=== PATIENT | female | born 1935 | race Caucasian/White ===

== ENCOUNTER 2017-04-21 17:09 | Inpatient (IN) | payer OTHER, SELFPAY ==
--- NOTE | ~2017-04-21 | HP ---
History And Physical [facility] [address] [place]. [address] NAME: JOSE CANDELARIO : 37 STATUS : ADM IN [facility]#: [id number] AGE: 81 ADM/REG DATE : 04/21/17 MR#: [id number] REPORT SERV DATE: 04/22/17 DICTATED BY: JULES CASTELLANOS DATE: 04/21/17 REPORT STATUS : Draft TRANSCRIBED BY: MODL DATE: 04/21/17 DATE OF ADMISSION: 04/21/2017 CHIEF COMPLAINT: Altered mental status and weakness. HISTORY OF PRESENT ILLNESS: This is an 81-year-old female who has a history of chronic systolic heart failure, acute on chronic kidney disease, and Parkinson disease who presents to the emergency room at [facility] with the above-mentioned complaint. History is obtained from the patient, speaking with the ER physician, reviewing data available on the [employer] [facility]. Unfortunately, the daughter who was with her had gone home before I could see them. According to available data, Mrs. Candelario who was recently discharged from [facility] on 04/06/2017 after she was admitted and treated as an inpatient for pretty much the same symptoms, went home and continued to do poorly. She started gaining weight. Her abdomen got distended. She became more increasingly short of breath, and the family has reported that she became quite confused today. She says she wanted to go shopping today and could not even get out of her room. The patient was brought to the emergency room here to be evaluated. In the emergency room here, she presented with significant hyperkalemia, was treated with insulin and dextrose, calcium gluconate, and bicarb, she had a new right lower lobe infiltrate as well. She also had ascites in CT of the abdomen and pelvis as well, and Hospitalist Service was asked to admit her for further evaluation and treatment. At the time of my evaluation, she denied any chest pain or palpitations. She did have some mild orthopnea, maybe 1 to 2 pillows. She denied any cough, hemoptysis, night sweats, or weight loss. She denied any recent falls or loss of consciousness. She did not have any fevers or chills at home. Denied any nausea, vomiting, or diarrhea. No recent history of hematemesis, hematochezia, or hematuria. No other history of recent travel or exposures other than those mentioned above. PAST MEDICAL HISTORY: Significant for history of chronic systolic congestive heart failure, chronic anemia, chronic kidney disease, Parkinson disease, atrial fibrillation, and a pacemaker placed. SOCIAL HISTORY: She does not smoke, drink, or use recreational drugs. FAMILY HISTORY: Noncontributory. MEDICATIONS: At home were reviewed by me in the chart today and reordered by me. REVIEW OF SYSTEMS: As in history of present illness. All other systems were reviewed in detail and quite unremarkable. History And Physical [address] [place]. [address] NAME: JOSE CANDELARIO : 37 STATUS : ADM IN PAT#: [id number] AGE: 81 ADM/REG DATE : 04/21/17 MR#: [id number] REPORT SERV DATE: 04/22/17 DICTATED BY: JULES CASTELLANOS DATE: 04/21/17 REPORT STATUS : Draft TRANSCRIBED BY: RAYMOND DATE: 04/21/17 PHYSICAL EXAMINATION: GENERAL: This is a pleasant, 81-year-old female, not in any acute distress. HEENT: Her head was atraumatic, normocephalic. She is alert, awake, not oriented to time, place, or person. Her pupils are equal, reacting to light and accommodating. External ocular muscles are intact. Membranes are moist and pink. Sclerae are nonicteric. NECK: Supple with no jugular venous distention, lymphadenopathy, or thyromegaly. LUNGS: Auscultation of her lungs revealed crackles in the right base. Otherwise without any expiratory wheezes. Trachea appeared to be in midline. HEART: Heart sounds were regular with no murmurs, rubs, or gallops appreciated. ABDOMEN: Soft, distended. No tenderness to palpation. Bowel sounds are present. EXTREMITIES: Showed bilateral pitting lower extremity edema with no cyanosis or clubbing. NEUROLOGIC: Grossly intact. No focal sensory or motor deficits. She was able to move all four extremities. VITAL SIGNS: Her temperature today was 97.5, pulse 78, respirations 16 a minute, blood pressure was 115/57, and oxygen saturations were 90% on 2 L of oxygen via nasal cannula. LABORATORY DATA: Reviewed on the [employer] system showed sodium of 134, potassium was 7.6, CO2 of 21, and BUN was 79. Creatinine was 3.25 today, it is up from 1.74 on 04/05/2017. Her blood glucose today was 166. Total protein was 6.7, albumin 3.1, alkaline phosphatase was 127, ALT 16, and AST 79. Lipase was 122. CBC showed a white blood cell count of 11,900, hemoglobin was 8.9, and hematocrit 28.5, which is about her baseline. Her platelet count was 178,000. Urinalysis was grossly unremarkable. Films of the chest x-ray and CT of the abdomen and pelvis were reviewed by me on the PACS today. Per my interpretation, the chest x-ray showed new right lower lobe infiltrate. Films of the CT of the abdomen and pelvis were also reviewed. Official Radiology comments were also reviewed. There is mild to moderate ascites which is new and small bilateral pleural effusions. The 12-lead EKG done in the emergency room was reviewed and interpreted by me. There is paced rhythm at a rate of 72 per minute. IMPRESSION: 1. Altered mental status. 2. Hyperkalemia. 3. Chronic anemia, stable. 4. Pneumonia, healthcare associated. 5. Acute on chronic systolic congestive heart failure. 6. Ascites. 7. Acute on chronic kidney disease. 8. History of atrial fibrillation. 9. Parkinson disease. 10.Pacemaker placement. PLAN: We will admit Ms. Candelario to the Hospitalist Service with cardiac telemetry. The patient was given insulin, dextrose, calcium gluconate, and sodium bicarbonate in the ER for her hyperkalemia. We will repeat a potassium level in a couple of hours and proceed accordingly. We will give her Kayexalate p.o. as well. We will go ahead and consult Nephrology Service to see her in the morning. She was also hypotensive with a systolic of 80 at the time of my examination. We will give her albumin infusion at this time History And Physical [address] [address] NAME: JOSE CANDELARIO : 37 STATUS : ADM IN [facility]#: [id number] AGE: 81 ADM/REG DATE : 04/21/17 MR#: [id number] REPORT SERV DATE: 04/22/17 DICTATED BY: JULES CASTELLANOS DATE: 04/21/17 REPORT STATUS : Draft TRANSCRIBED BY: MODL DATE: 05/22/17 considering her volume overload and acute on chronic heart failure. We will also check her BNP today. After cultures are drawn, we will start her on empiric IV antibiotics for healthcare- associated pneumonia given her recent inpatient treatment at [facility]. We will also get an echocardiogram to evaluate her heart failure. Her altered mental status is multifactorial. We will watch her closely. We will continue all other home medications and treatments at this time. She is on chronic anticoagulation, which we will be continuing. Please see today's orders for all the details. I have discussed the above plans with the patient. Her questions were answered. She is agreeable to the above recommendations. Hospitalist Service will be following her during her stay. /RAYMOND Jules Castellanos M.D. / [id number] CC: Maria Ines Bhandari M.D.
--- NOTE | ~2017-04-21 | CN ---
Consultation Report [facility] [address] [place]. [address] NAME: JOSE HOLT : 37 STATUS : ADM IN PAT#: [id number] AGE: 81 ADM/REG DATE : 04/21/17 MR#: [id number] REPORT SERV DATE: 04/22/17 DICTATED BY: AMALIA NIX DATE: 04/22/17 REPORT STATUS : Draft TRANSCRIBED BY: MODL DATE: 04/22/17 DATE OF CONSULTATION: REASON FOR CONSULTATION: Acute kidney injury on chronic kidney disease with hyperkalemia with admission for altered mentation and pneumonia. HISTORY OF PRESENT ILLNESS: This is a fairly pleasant 81-year-old female patient, followed in our office by Dr. Jagdish Boswell. Baseline appears to be approximately 1.7 to 1.9. Current records from most recent office visit are unavailable to me at the point of dictation. The patient's daughter rather is at bedside this morning, provides much of the medical history on her mother who has had a recent inpatient stay at [facility] for altered mentation and some sort of acute infection. The patient's daughter is unclear particularly if this were pneumonia or urinary tract infection or combination thereof. She reports to [facility] with worsening mentation overnight and was diagnosed with pneumonia and was placed inpatient for antibiotics and supportive care with noted acute kidney injury and hyperkalemia. She has been given Kayexalate most recently this morning at around 0715 hours with last resultant potassium at 5.9, on early a.m. labs without current recheck. She has also exhibited some hypoglycemia and has exhibited as well an elevated procalcitonin at 1.07, but a lactate at 0.60. The patient is awake and alert this afternoon, while evaluation is taking place. She does answer questions appropriately, but has some level of difficulty with all of her past medical history and details of her current living situation. According to the daughter who is here from [place], the patient lives independently at home and provides most of her care independently. PAST MEDICAL HISTORY: Positive for chronic kidney disease stage 3, baseline creatinine appears to be 1.7 to 1.[address] Jagdish Boswell. History is also significant for congestive heart failure with unknown ejection fraction. Last echo in 2010 at [facility] appears by her previous data, but is unavailable for review, chronic anemia, chronic kidney disease, Parkinson disease, atrial fibrillation, and previous pacemaker. SOCIAL HISTORY: She lives here locally. Apparently lives independently with some level of interaction from her family and remote history of tobacco abuse, none currently. No EtOH. No illicit drugs or . ALLERGIES: ON ENTRY ARE FOLLOWS; SHE LISTS ALLERGIES TO SULFA ANTIBIOTICS. ACTIVE MEDICATIONS: ProAir HFA two puffs inhaled q.6 h. p.r.n., Zyloprim 300 mg p.o. daily, Tessalon Perles 100 mg p.o. t.i.d., Sinemet 10/100 one tablet p.o. t.i.d., Coreg 25 mg p.o. b.i.d., vitamin D 1000 units p.o. daily, Flexeril 10 mg p.o. t.i.d., Lanoxin 1.25 mcg p.o. q.48 h., Breo Ellipta 1 puff inhaled daily, Lasix 40 mg daily, Glucotrol 10 mg p.o. daily, [place] 5/325 one tablet p.o. q.6 h. p.r.n., Levemir 48 units subcu at bedtime, levothyroxine 75 mcg p.o. daily, Claritin 10 mg p.o. daily, Ativan 0.5 mg daily p.r.n., Cozaar 50 mg p.o. daily, Singulair 10 mg p.o. daily, Zofran 4 mg p.o. q.6 h. p.r.n., Protonix 20 mg daily, Klor-Con 20 mEq p.o. daily, Mirapex 0.25 mg p.o. at bedtime, Pravachol 40 mg p.o. daily, Consultation Report [address] [place]. [address] NAME: JOSE HOLT : 37 STATUS : ADM IN [facility]#: [id number] AGE: 81 ADM/REG DATE : 04/21/17 MR#: [id number] REPORT SERV DATE: 04/22/17 DICTATED BY: AMALIA NIX DATE: 04/22/17 REPORT STATUS : Draft TRANSCRIBED BY: RAYMOND DATE: 04/22/17 Lyrica 50 mg p.o. at bedtime, Xarelto 15 mg p.o. daily, Daliresp 500 mcg p.o. daily, Januvia 25 mg p.o. at bedtime, Spiriva one capsule inhaled daily, and Mucinex D 1 tablet daily. REVIEW OF SYSTEMS: Completed with the assistance of family who was at bedside. The patient appears to be awake and alert, but is sparse on details of her medical history. PHYSICAL EXAMINATION: VITAL SIGNS: Blood pressure 118/57, temperature at 97.6, she is 94% on room, respiratory rate 18. GENERAL: She is a chronically ill-appearing, female patient, in no acute distress during evaluation. HEENT: Normocephalic and atraumatic. Normal ocular movements. No scleral icterus. No conjunctival pallor is appreciated. NECK: Supple. No thyromegaly. No JVD or mass. CHEST: Shows positive S1 and S2 with a paced rhythm. No rubs. No gallops. LUNGS: Diminished with scattered rhonchi and wheezes. GI: Shows a rounded abdomen with [id number] ascites noted without overt distention. : Deferred. EXTREMITIES: Show positive pulses. No clubbing, cyanosis, or edema. NEUROLOGIC: She appears to be grossly intact, nonfocal. She is able to answer questions appropriately; however, has some level of difficulty with exact details of her medical history and has a diagnoses of Parkinson's. SKIN: Warm, dry, and intact to visualized surfaces. No rash, lesions, or ecchymosis. EXTREMITIES: Show positive pulses. No clubbing, cyanosis, or edema. PSYCH: She is of appropriate mood and affect. LABORATORY DATA: Pertinent laboratories and imaging to this evaluation are as follows. Portable chest x-ray identifies an infiltrate developing in the right lower lobe. She did have some hypoglycemic episodes this morning. Procalcitonin at 1.15, sodium 139, potassium 5.9, chloride 109, CO2 of 22, BUN 79, creatinine 2.94, reflected GFR 14 mL/minute, calcium 8.3, magnesium 1.8, phosphorus 6.2, ALT is 16, AST 46, TSH [QAMARKER], lactate 0.6. CBC: White blood cell count 9.8, RBC 2.97, hemoglobin 8.2, hematocrit 25.8, platelets at 137. Strep pneumo and Legionella are negative. Urinalysis identifies cloudy in appearance, no protein minimal white blood cells or red blood cells with 18 casts per low power field and rare mucus. B-natriuretic peptide 366.6. CT of the abdomen and pelvis identifies ascites as noted on physical exam. There is also noted a small right pleural effusion, left trace pleural effusion and she is status post colectomy with suspected ileal colonic anastomosis involving the rectum with no GI obstruction and cardiomegaly is also noted. IMPRESSION AND PLAN: This is an 81-year-old female patient with acute kidney injury on chronic kidney disease with an elevated creatinine, hyperkalemia, possible pneumonia, and elevated procalcitonin. Creatinine on entry at 2.94, baseline creatinine appears to be 1.7 and [address] Jagdish Boswell. She is also presenting with some level of difficulty with hypoglycemia. She has been initiated on antibiotics by the Consultation [address] [address] NAME: JOSE HOLT : 37 STATUS : ADM IN [facility]#: [id number] AGE: 81 ADM/REG DATE : 04/21/17 MR#: [id number] REPORT SERV DATE: 04/22/17 DICTATED BY: AMALIA NIX DATE: 04/22/17 REPORT STATUS : Draft TRANSCRIBED BY: RAYMOND DATE: 04/22/17 hospitalist Service. At this point, we will stop her losartan, stop her Januvia and with the acute kidney injury, we will also stop her Zyloprim and her Lasix and her Glucotrol. She is also noted to be on a large dose of long-acting insulin. We will defer to the Hospitalist Service, which may need to be modified with noted hypoglycemia. Check urine sodium, check urine creatinine, urine urea, check renal ultrasound, check postvoid residual DuoNebs q.6 h. and p.r.n., which appeared to already be in place and titrate oxygen to maintain a sat of 92% rather or better. The patient also complains of some level of neck pain, although there is no noted fernanda trauma to her cervical area. At the request of the family member who is at bedside, we will provide x-ray evaluation of her neck. The patient will benefit from physical therapy, occupational therapy evaluation and likely will need placement of some level at this point for either acute rehabilitation or long-term care dependent on her home living status at the point of discharge. Further modification of treatment plan may be made based on clinical presentation of the patient, laboratory results, and further consultation with Renal attending. We appreciate the consultation, and we are glad to follow with you. DICTATED BY: Leonel Miller NP JR/RAYMOND alia Nix M.D. / [id number] CC: Ean Tejada M.D.
--- NOTE | ~2017-04-21 | DS ---
Discharge Summary [facility] [address] [place]. [address] NAME: JOSE HOLT : 37 STATUS : DIS IN PAT#: [id number] AGE: 81 ADM/REG DATE : 04/21/17 MR#: [id number] REPORT SERV DATE: 05/11/17 DICTATED BY: YAYO BENTLEY DATE: 05/10/17 REPORT STATUS : Draft TRANSCRIBED BY: RAYMOND DATE: 05/10/17 ADMISSION DATE: 04/21/2017 DISCHARGE DATE: 05/10/2017 CONSULTATION: 1. Nephrology, Dr. Ruddy Nix. 2. Cardiology, Gregor Fischer MD. 3. Vascular Surgery, Jeremy Shipman M.D. INVASIVE PROCEDURES: 1. Ultrasound-guided percutaneous access left internal jugular vein. 2. Placement of left internal jugular vein, PermCath with fluoroscopy guidance. 3. Right upper extremity brachiocephalic arteriovenous fistula creation; all performed by Dr. Shipman. DISCHARGE DIAGNOSES: 1. Progression of chronic kidney disease stage 4 to end-stage renal disease, now on intermittent HD. 2. Hyperkalemia, resolved. 3. Normocytic anemia secondary to chronic kidney disease. 4. Healthcare-associated pneumonia, resolved. 5. Chronic obstructive pulmonary disease exacerbation. 6. Acute decompensated heart failure with preserved EF of 50%. 7. Fluid overload. 8. Paroxysmal atrial fibrillation. 9. Parkinson disease. 10.Acute on chronic respiratory failure. 11.Acute kidney injury on chronic kidney disease stage IV. DISCHARGE CONDITION: Stable. HISTORY OF PRESENT ILLNESS: For detailed HPI, please make reference to Dr. Jules Gill's dictation on 04/21/2017. In brief, this is an 81-year-old, female with medical history of chronic heart failure, chronic kidney disease stage 4, Parkinson disease who presented to the emergency room of [facility] here in [place] with complaints of confusion and generalized weakness. In the ER, she was found to have blood pressure 115/57, saturating 90% on 2 L of oxygen, pulse 77, temperature 97.5. Physical exam was positive for diffuse crackles on the right lower lung base without any expiratory wheezes. Also noted to have bilateral pitting lower extremity edema. LABORATORY DATA: White blood cell 11,900, hemoglobin 8.9, hematocrit 28.5, creatinine 3.25. BUN 79, bicarb 21. Chest x-ray showed new right lower lobe infiltrate. CT of the abdomen and pelvis noted for small bilateral pleural effusion. No acute intraabdominal pathology reported. An assessment of acute kidney injury on chronic kidney disease with healthcare-associated Discharge Summary [facility] [id number] [place]. [address] NAME: JOSE HOLT : 37 STATUS : DIS IN PAT#: [id number] AGE: 81 ADM/REG DATE : 04/21/17 MR#: [id number] REPORT SERV DATE: 05/11/17 DICTATED BY: YAYO BENTLEY DATE: 05/10/17 REPORT STATUS : Draft TRANSCRIBED BY: RAYMOND DATE: 05/10/17 pneumonia was made in the ER. The patient was admitted to the Hospitalist Service. HOSPITAL COURSE: 1. Acute kidney injury on chronic kidney disease IV. 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 The patient's creatinine continued to get worse during the course of this admission. It continued to trend up and peaked at 5.0, Nephrology recommended initiation of hemodialysis during this admission. Vascular surgeon was consulted who performed a PermCath placement and brachiocephalic vein fistula placement. The patient had both procedures without any significant complication. Hemodialysis was initiated during this admission. The patient tolerated hemodialysis without any complication. At the time of discharge, the patient was advised to continue HD as an outpatient. HD Center has been provided to this patient, and the patient's next dialysis schedule will be 05/12/2017. 2. Acute on chronic hypoxic respiratory failure. The patient was started on broad- spectrum antibiotics during the course of this admission for health-care associated pneumonia. The patient respiratory status continued to decline. There was increase, during the course of this admission, oxygen requirement was increased from 2 L at presentation to 4 L to 5 L. The patient was noted to have diffuse expiratory wheezes which was consistent with COPD exacerbation. In addition to broad-spectrum antibiotics, steroids were added. The patient's respiratory status continued to improve. The patient's white blood cell trended back to within normal range. At the time of discharge, the patient was back to 2 L of oxygen which is a known baseline. WBC count within normal range. Cough and shortness of breath significantly improved. The patient was advised to continue albuterol nebulization at home as needed. 3. Acute decompensated heart failure with preserved EF of 50%. The patient had a trial of IV diuretics during this admission without any significant improvement. An echocardiogram was obtained that showed left ventricular systolic function borderline at 50% which was unchanged from 11/14/2016. Also noted was dilated right ventricular chamber with mildly impaired contractility which remains unchanged. The patient subsequently underwent hemodialysis with significant improvement in overall volume status. The patient was advised to continue diuretics at home and follow up with primary captain airline pilot as an outpatient. DISCHARGE DISPOSITION: Home with family. DISCHARGE MEDICATIONS: 1. Aspirin 81 mg p.o. daily. 2. Sinemet 10/100 mg one tab p.o. t.i.d. 3. Coreg 25 mg p.o. b.i.d. 4. Tessalon Perles 100 mg p.o. t.i.d. 5. Guaifenesin 600 mg p.o. b.i.d. 6. Levemir 48 units subcu. 7. Levothyroxine 75 mcg p.o. daily. 8. Loratadine 10 mg p.o. daily. 9. Singulair 10 mg p.o. daily. Discharge Summary [address] [address] NAME: JOSE HOLT : 37 STATUS : DIS IN PAT#: [id number] AGE: 81 ADM/REG DATE : 04/21/17 MR#: [id number] REPORT SERV DATE: 05/11/17 DICTATED BY: YAYO BENTLEY DATE: 05/10/17 REPORT STATUS : Draft TRANSCRIBED BY: RAYMOND DATE: 05/10/17 10.Prednisone 40 mg p.o. daily x3 days. 11.Romilast. 12.Spiriva. 13.Albuterol inhaler. 14.Lasix 40 mg p.o. daily. 15.[place] 5/325 mg p.o. b.i.d. 16.Xarelto 15 mg p.o. daily. 17.Losartan 50 mg p.o. daily. 18.Digoxin 125 mcg p.o. q.48 hours. 19.Januvia 25 mg p.o. at bedtime. 20.Zofran 4 mg p.o. p.r.n.. 21.Zyloprim 300 mg p.o. daily. DISCHARGE ACTIVITIES: As tolerated. DISCHARGE FOLLOWUP: 1. Follow up at the hemodialysis center on 05/12/2017. 2. Follow up with Nephrology within one to two weeks of discharge. 3. Followup with Cardiology within two to three weeks of discharge. 4. Follow up with primary care physician within one week of discharge. Greater than 40 minutes was used to prepare this patient's discharge, reconcile medication, and advised the patient on discharge plans and followup. DICTATED BY: MD CHARLY EscobarO/RAYMOND Yayo Bentley MD / [id number] CC: MD Edwin Escobar M.D. Mark W Fugate, M.D. Mani Ravee, M.D. Vinay Deep Madan, MD Mandeep Grewal, M.D.
--- NOTE | ~2017-04-21 | CN ---
Consultation Report [facility] [address] [place]. [address] NAME: JOSE CANDELARIO : 37 STATUS : ADM IN PAT#: [id number] AGE: 81 ADM/REG DATE : 04/21/17 MR#: [id number] REPORT SERV DATE: 04/23/17 DICTATED BY: GREGOR FISCHER DATE: 04/23/17 REPORT STATUS : Draft TRANSCRIBED BY: MODL DATE: 04/23/17 CARDIOLOGY CONSULTATION DATE OF CONSULTATION: 04/23/2017 REASON FOR CONSULTATION: Heart failure. PRIMARY EMPLOYEE ADVISER: Cristobal Rojo M.D. HISTORY OF PRESENT ILLNESS: Ms. Candelario is a very pleasant 81-year-old female, whom we have been asked to see by the Hospitalist Service for assistance in the management of heart failure. The patient's cardiovascular history is notable for valvular heart disease with prior bioprosthetic mitral valve replacement and AV conduction disease, status post prior pacemaker. She has a long-standing diagnosis of heart failure with prior echocardiogram in 10/2016 demonstrating primarily RV dysfunction with elevated pulmonary hypertension, but normal prosthetic valve function and no significant LV systolic dysfunction. She has been managed with oral Lasix at home and states that it is generally helpful in managing her chronic lower extremity edema. She was admitted on 04/21/2017 after being brought in with altered mental status and after ensuing lab workup, demonstrated acute on chronic kidney injury with associated hyperkalemia. She has since been treated with medications to improve this and her potassium level has decreased from an admission value of 7.62 to most recent value of 4.8. Her creatinine is starting to trend down as well from an admission value of 3.2 to 2.9. She follows with Dr. Boswell in the outpatient setting and has been seen by the Nephrology Service. From a cardiac standpoint, she states she has chronic edema, but has noticed it getting worse as well as increased abdominal fullness. Imaging this admission has been notable for ascites, bilateral pleural effusions, and suspected pneumonia. Currently, the patient feels better. She admits that she was confused prior to admission, but feels that she is back to baseline. She has had no chest discomfort, no palpitations, no claudication. She has chronic two-pillow orthopnea and has difficulty lying flat on her back. She has no complaints at this time. PAST MEDICAL HISTORY: 1. 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 2. History of AV block, status post pacemaker placement. 3. Heart failure with preserved ejection fraction. 4. COPD. 5. Obstructive sleep apnea. 6. Diabetes. 7. Hyperlipidemia. Consultation Report [facility] [address] [place]. [address] NAME: JOSE CANDELARIO : 36 STATUS : ADM IN PAT#: [id number] AGE: 81 ADM/REG DATE : 04/21/17 MR#: [id number] REPORT SERV DATE: 04/23/17 DICTATED BY: GREGOR FISCHER DATE: 04/23/17 REPORT STATUS : Draft TRANSCRIBED BY: RAYMOND DATE: 04/23/17 8. Parkinson disease. MEDICATIONS: Home meds were reviewed per medical record and notable for Coreg 25 q.12, digoxin 0.125 q.48, Lasix 40 one daily, losartan 50 daily, pravastatin, Xarelto, and rivaroxaban. ALLERGIES: DOCUMENTED ALLERGY TO SULFA, WHICH CAUSES HIVES. FAMILY HISTORY: Noncontributory. SOCIAL HISTORY: The patient is . She has three living children, one of whom lives in [place]. She lives alone. 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 She is a former smoker, quit 35 years ago. She denies alcohol or illicits. She is independent in her activities of daily living. REVIEW OF SYSTEMS: Per HPI, otherwise, negative. PHYSICAL EXAMINATION: VITAL SIGNS: Temperature is 97.9, pulse is 70, blood pressure is 117/56, oxygen saturation 97% on 2 L nasal cannula. GENERAL: female, appears her stated age. Speech is nonlabored, well developed, well nourished. HEENT: Sclerae anicteric. Mucous members are moist. NECK: Supple. CARDIOVASCULAR: Regular rhythm is present with splitting of the second heart sound. No prominent murmur is present. CHEST: An implantable device is present in the left subclavicular region, nontender. PULMONARY: Diminished breath sounds in the right base with rhonchi. No wheezing bilaterally. ABDOMEN: Mildly distended, nontender. Positive bowel sounds. EXTREMITIES: Edema is present bilaterally. LABORATORY DATA: Labs reviewed. Initial labs notable for WBC of 11.9, hemoglobin 8.9, hematocrit 28.5, platelets of 178. Procalcitonin 1.07. Sodium 134, potassium 7.6, chloride 108, bicarb 21, BUN 79, creatinine 3.2, calcium 8.5, magnesium 2.0, phosphorus 6.4. Albumin 3.1, AST 79, ALT 16, BNP 366. Most recent potassium is 4.8. STUDIES: CT the chest, abdomen, and pelvis demonstrates ascites, [id number]; small right pleural effusion; and trace left pleural effusion with consolidation of the right basilar lung, suggestive pneumonia or aspiration. Findings consistent with subtotal colectomy and cardiomegaly with LAD atherosclerosis and calcification of the aortic valve. Echocardiogram demonstrates LVEF of 50%; LVH; RV enlargement with impaired contractility; biatrial enlargement; aortic valve stenosis, mild; elevated PA pressures estimated in the 70s; normal gradient across the mitral valve; moderate tricuspid valve regurgitation. Chest Consultation Report [facility] [id number] [place]. [address] NAME: JOSE CANDELARIO : 37 STATUS : ADM IN [facility]#: [id number] AGE: 81 ADM/REG DATE : 04/21/17 MR#: [id number] REPORT SERV DATE: 04/23/17 DICTATED BY: GREGOR FISCHER DATE: 04/23/17 REPORT STATUS : Draft TRANSCRIBED BY: RAYMOND DATE: 04/23/17 x-ray demonstrates right lower lobe infiltrate. EKG demonstrates ventricular pacing with left bundle-branch block morphology. IMPRESSION/RECOMMENDATIONS: 1. Encephalopathy, improved. 2. Acute kidney injury in the background of chronic kidney disease. 3. Hyperkalemia, improved. 4. Heart failure with a preserved ejection fraction, acute on chronic, with RV dysfunction on echo. 5. Pulmonary hypertension, likely multifactorial in the setting of mitral valve disease, chronic obstructive pulmonary disease, and obstructive sleep apnea. 6. History of AV block, status post pacemaker. 7. Suspected pneumonia. 8. Valvular heart disease with bioprosthetic mitral valve. 9. Coronary artery disease, no prior revascularization. Echocardiogram suggests that the cause of the patient's heart failure is primarily right- sided heart failure associated with pulmonary hypertension, likely associated with her long- standing history of mitral valve disease and pulmonary disease. She has exam and radiographic findings of volume overload despite the use of loop diuretic at home. She currently has minimal O2 requirements. Diuresis has been held in the setting of acute kidney injury, which has now stabilized. There is no suggestion of mitral valve dysfunction or new LV dysfunction. BNP is only minimally elevated. While diuresis is appropriate, agree with holding it temporarily given her presentation of acute kidney injury complicated by hyperkalemia. Moving forward, we will try to institute a more aggressive diuretic regimen when the patient's renal function stabilizes; they anticipate difficulty balancing volume status and renal perfusion in this patient with right-sided heart failure. I would make no changes right now, but anticipate restarting diuresis later this admission. VDM/MODL Gregor Fischer MD / [id number] CC: Ean Tejada M.D.
--- NOTE | ~2017-04-21 | OP ---
Record Of Operation [facility] [address] [place]. [address] NAME: JOSE CANDELARIO : 37 STATUS : ADM IN PAT#: [id number] AGE: 81 ADM/REG DATE : 04/21/17 MR#: [id number] REPORT SERV DATE: 05/07/17 DICTATED BY: JOSE SHIPMAN DATE: 05/07/17 REPORT STATUS : Draft TRANSCRIBED BY: MODL DATE: 05/07/17 DATE OF PROCEDURE: 05/07/2017 PREOPERATIVE DIAGNOSIS: End-stage renal disease, requiring hemodialysis. POSTOPERATIVE DIAGNOSIS: End-stage renal disease, requiring hemodialysis. PROCEDURE: 1. Ultrasound-guided percutaneous access, left internal jugular vein. 2. Placement of left internal jugular vein PermCath with fluoroscopic guidance. SURGEON: Jose Shipman M.D. ANESTHESIA: Local with MAC. ESTIMATED BLOOD LOSS: 5 mL. COMPLICATIONS: None. INDICATION: Ms. Candelario is a pleasant, 81-year-old female with chronic kidney disease that recently progressed to end-stage renal disease. She previously was not thought to require dialysis yet but has progressed to the need for dialysis. Her fistula was only recently placed and is not ready to be accessed yet. I am asked to place a PermCath. DETAILS OF PROCEDURE: After informed consent was obtained, the patient was brought to the endovascular suite and placed in supine position. After administration of IV sedation, she was prepped and draped in usual sterile fashion. A time-out was performed. I commenced the procedure with ultrasound-guided percutaneous access of the left internal jugular vein. Left side was chosen because she has a pacemaker on the right. A permanent image of the vein documenting patency was saved and stored in the patient's chart. I accessed an 18- gauge entry needle after anesthetizing the skin. I passed a Bentson wire down to the right atrium, confirmed under fluoroscopy. I then anesthetized the left chest wall. I made a stab incision in the left chest wall and around the access site in the neck. I tunneled a 23 straight Bard HemoSplit PermCath in the left chest wall up to the puncture site. I then removed the needle, placed a peel-away sheath over the Bentson wire with the tip in the right atrium and confirmed under fluoroscopy. I then advanced the catheter through the peel away sheath while simultaneously peeling it apart. Tip of the most distal port of the catheter came to rest in the right atrium. Both ports aspirated dark venous blood and flushed easily with heparinized saline. Catheter secured to the skin with 2-0 nylon. Sterile dressings were applied. The patient tolerated the procedure well. There were no complications. I was present for this entire case as dictated. AJ/RAYMOND Record Of [address] [address] NAME: JOSE CANDELARIO : 37 STATUS : ADM IN [facility]#: [id number] AGE: 81 ADM/REG DATE : 04/21/17 MR#: [id number] REPORT SERV DATE: 05/07/17 DICTATED BY: JOSE SHIPMAN DATE: 05/07/17 REPORT STATUS : Draft TRANSCRIBED BY: RAYMOND DATE: 05/07/17 Jose Shipman M.D. / [id number] CC: MD Edwin Escobar M.D.
--- NOTE | ~2017-04-21 | IDS ---
Interim Discharge Summary [facility] [address] [place]. [address] NAME: JOSE HOLT : 37 STATUS : ADM IN PAT#: [id number] AGE: 81 ADM/REG DATE : 04/21/17 MR#: [id number] REPORT SERV DATE: 04/28/17 DICTATED BY: ANTONIETTA CHRIS DATE: 04/28/17 REPORT STATUS : Draft TRANSCRIBED BY: MODL DATE: 04/28/17 ADMISSION DATE: 04/21/2017 DISCHARGE DATE: DIAGNOSES: So far, 1. Chronic diastolic heart failure. 2. Acute kidney injury on chronic kidney disease, stage 4. The patient may be close to requiring even dialysis now as the patient's pulmonary congestion is significant and continues to be there despite patient being on high-dose diuretics. The patient's urine output has increased, but her creatinine keeps rising and her BUN keeps rising, and in fact, her pulmonary congestion may be because of pleurisy also because of uremia. The patient may need dialysis, so Renal is following. 3. Chronic kidney disease, stage 4. 4. Chronic diastolic dysfunction of the heart and mild systolic dysfunction with an ejection fraction of 50%. 5. Volume overload and chronic right ventricular failure with patient requiring large doses of diuretics. 6. Status post pacer placement and chronic intermittent atrial fibrillation for which the patient is on low-dose Xarelto for anticoagulation. With the patient's renal function declining, we may have to take her off the Xarelto, but this is up to Renal. food safety specialist is also following this patient. 7. Parkinson disease, which is chronic. 8. Severe deconditioning. Disposition of this patient is going to be to an inpatient rehab facility, but her main issue now is rising creatinine. Renal is following and they will suggest further management of this patient. As of today, Dr. Capone has seen the patient and suggested no changes, but within the next day or two if her creatinine worsens, there is a good chance she may have to undergo dialysis. This patient will be taken over by my colleague on 04/29/2017. RRA/KRERIL Antonietta Chris M.D. / [id number] CC: Ean Tejada M.D.
--- NOTE | ~2017-04-21 | OP ---
Record Of Operation [facility] [address] [place]. [address] NAME: JOSE CANDELARIO : 37 STATUS : ADM IN PAT#: [id number] AGE: 81 ADM/REG DATE : 04/21/17 MR#: [id number] REPORT SERV DATE: 05/06/17 DICTATED BY: JOSE SHIPMAN DATE: 05/06/17 REPORT STATUS : Draft TRANSCRIBED BY: MODWally DATE: 05/06/17 DATE OF PROCEDURE: 05/02/2017 PREOPERATIVE DIAGNOSIS: Chronic kidney disease. POSTOP DIAGNOSIS: Chronic kidney disease. PROCEDURE: Right upper extremity brachiocephalic arteriovenous fistula creation. METAL DRILL OPERATOR: Ray. ANESTHESIA: Local with MAC. ESTIMATED BLOOD LOSS: 25 mL. IV FLUIDS: 100 mL. COMPLICATIONS: None. INDICATION: Ms. Candelario is a pleasant 81-year-old female, recently started on dialysis and felt to need hemodialysis chronically. I was asked to place AV fistula prior to discharge. DETAILS OF PROCEDURE: After informed consent was obtained, the patient was brought to the operating room and placed in supine position. After administration of IV sedation, she was prepped and draped in usual sterile fashion. A time-out was performed. I commenced the procedure with ultrasound examination of the right upper extremity. She has good caliber cephalic vein in the upper arm approximately 3 mm in diameter. The brachial artery is also a decent caliber with minimal disease and also approximately 3 mm in diameter. We plan for brachiocephalic AV fistula. After that, I anesthetized the skin in the antecubital fossa. I made an incision and dissected down through subcutaneous tissues with cautery. I exposed the cephalic vein, which was patent and decent caliber. It was mobilized proximally and distally. Through the same incision, I exposed the brachial artery. It is encircled proximally and distally with vessel loops. We administered 2000 units of IV heparin. I then ligated the cephalic vein distally. I performed end-to-side anastomosis of the cephalic vein to the brachial artery with running 6-0 Prolene. Prior to completing the suture line, we flushed. We then restored flow to the fistula first and then to the hand distally after that. There was immediately palpable thrill in the fistula. The vein dilated nicely. Suture line was hemostatic. There was still a palpable radial pulse. After that, we ensured hemostasis. The wound was then closed in layers of 3-0 Vicryl for the deep layer with running 4-0 Monocryl in a subcuticular fashion for the skin. Dermabond was applied. The patient tolerated the procedure well with no complications. AJ/RAYMOND Record Of [address] [address] NAME: JOSE CANDELARIO : 37 STATUS : ADM IN PAT#: [id number] AGE: 81 ADM/REG DATE : 04/21/17 MR#: [id number] REPORT SERV DATE: 05/06/17 DICTATED BY: JOSE SHIPMAN DATE: 05/06/17 REPORT STATUS : Draft TRANSCRIBED BY: RAYMOND DATE: 05/06/17 Jose Shipman M.D. / [id number] CC: MD Edwin Escobar M.D.
[2017-04-21 15:15] LABS: BASOPHILS 0.2 %; BASOPHILS ABSOLUTE 0.02 10/3/uL (0.0-0.16); EOSINOPHILS 0.9 %; EOSINOPHILS ABSOLUTE 0.11 10/3/uL (0.0-0.53); HEMATOCRIT 28.5 % (36.0-48.0); HEMOGLOBIN 8.9 g/dL (12.0-16.0); IMMATURE GRANULOCYTES 0.6 %; IMMATURE GRANULOCYTES ABSOLUTE 0.07 10/3/uL (0.0-0.11); LYMPHOCYTES 10.9 %; MEAN CORPUS HGB CONC 31.2 g/dL (32.0-36.0); MEAN CORPUSCULAR HEMOGLOB 29.2 pg (26.0-34.0); MEAN CORPUSCULAR VOLUME 93.4 fL (80-100); MEAN PLATELET VOLUME 11.5 fL (9.2-13.0); MONOCYTES ABSOLUTE 0.71 10/3/uL (0.21-1.20); NEUTROPHILS 81.4 %; NEUTROPHILS ABSOLUTE 9.72 10/3/uL (2.02-8.40); PLATELET COUNT 178 10/3/uL (150-400); RBC DISTRIBUTION WIDTH 16.8 % (12.0-16.0); RED CELL COUNT 3.05 10/6/uL (4.0-5.6)
[2017-04-21 15:16] LABS: ER CBC TAT 0 Hrs 07 Mins; MANUAL DIFF NO %; WHITE BLOOD CELLS 11.9 10/3/uL (4.5-10.5)
[2017-04-21 15:29] LABS: A/G RATIO 0.9 (0.7-1.9); ALBUMIN 3.1 G/DL (3.5-5.0); BUN (BLOOD UREA NITROGEN) 79 MG/DL (6-23); CALCIUM, SERUM 8.5 MG/DL (8.5-10.4); CHLORIDE, SERUM 108 MMOL/L (96-112); CO2 (CARBON DIOXIDE) 21 MMOL/L (24-34); GLOBULIN 3.6 G/DL (2.5-4.1); SGOT(AST) 79 U/L (5-40); SGPT(ALT) 16 U/L (5-65); TOTAL PROTEIN 6.7 G/DL (6.0-8.5)
[2017-04-21 15:32] LABS: ALKALINE PHOSPHATASE 127 U/L (45-117); CREATININE 3.25 MG/DL (0.55-1.02); GFR AFRICAN AMERICAN 15 ML/MIN (>=60); GFR NON AFRICAN AMERICAN 13 ML/MIN (>=60); GLUCOSE, SERUM 166 MG/DL (60-99); POTASSIUM, SERUM 7.6 MMOL/L (3.5-5.3); SODIUM, SERUM 134 MMOL/L (135-148)
[2017-04-21 15:33] LABS: ASCORBIC ACID (UR NOT ORDER) NEG (NEG); BILIRUBIN, URINE NEGATIVE (NEG); ER URINALYSIS TAT 0 Hrs 13 Mins; KETONE, URINE NEGATIVE (NEG); LEUKOCYTE ESTERASE(NOT OR TRACE (NEG); NITRITE (URINE) NEG (NEG); WBC (NOT ORDERED) (RFLEX) 5 (0-5)
[~2017-04-21 17:09] MED LIST: ADVAIR250 INH; ALBUTEROL0.083 % INH; ALIGN4 MG PO; ALINIA500 PO; AMARYL1 MG PO; ASAB PO; ATV.5 PO; ATV1 PO; C2 PO; CIP5 PO; CLARIT10 PO; COLCH6 PO; COLCRYS0.6 MG PO; CORDARONE PO; COREG12 PO; COREG25 PO; COZ25 PO; COZ50 PO; DALIRESP500 MCG PO; DIGITEK0.125 MG; DIGITEK0.125 MG PO; DULERA 200 MCG/13 GM INH; DUONEB INH; ELIQUIS 2.5 MG2.5 MG; ELIQUIS 5 MG TAB5 MG PO; ERYTHROCIN250 MG; FIBERCON PO; FLEX PO; FLONASE NAS; FLORASTOR250 MG PO; FUROSEMIDE; GERIATRIC HP OR; GLUCOPHAGE1000 MG PO; GLUCOTRO10 PO; HALF81 PO; IMDUR30 PO; IMOD PO; JANUVIA100 MG PO; JANUVIA25 MG PO; KDUR20 PO; KLOR-CON M2020 MEQ PO; L20 PO; L40 PO; LAN125 PO; LEVAQUIN750 MG PO; LEVEMIR SC; LEVOTHYROXIN100 MCG PO; LEVOTHYROXIN50 MCG PO; LEVOTHYROXIN75 MCG PO; LORTAB 5 PO; LYRICA25; LYRICA50 PO; M-END DM OR; M-END WC OR; MAGOX4 PO; MIRAPEX250 PO; NEUR100 PO; NEXIUM40 PO; NORCO1 TA1 PO; OMNICEF300 PO; POTASSIUM; PRAVACHOL40 MG PO; PRILO PO; PROTONIX PO; PROTONIX20 MG PO; PROVENTSOL INH; PROVHFA INH; REG5 PO; RIFADIN 300 MG300 MG PO; SIN10 PO; SINGULAIR1 PO; SPIRIVA INH; STRESSIRON PO; SUCR PO; SUGAR PILL; SYN.05 PO; TESS PO; VANC125UDL PO; VENTOLIN HFA INH; VIB100 PO; VITAMIN D1000 UNI1 PO; VITAMIN D2 PO; VITD PO; Z100; Z100 PO; Z300 PO; ZANTAC 150 PO; ZITHROMAX500 MG PO; ZOFRAN ODT4 MG PO; ZYVOXPO PO; [UNRECOGNIZED DRUG - REMARK]
[2017-04-21] MEDS ORDERED: NORCO1 TA1 PO (17:17)
[2017-04-21] MEDS ORDERED: LEVEMIR SC (17:18)
[2017-04-21] MEDS ORDERED: L40 PO (17:19)
[2017-04-21] MEDS ORDERED: FLEX PO (17:20)
[2017-04-21] MEDS ORDERED: LEVOTHYROXIN75 MCG PO (17:21)
[2017-04-21] MEDS ORDERED: GLUCOTRO10 PO (17:21)
[2017-04-21] MEDS ORDERED: XARELTO15 MG PO (17:22)
[2017-04-21] MEDS ORDERED: COREG25 PO (17:23)
[2017-04-21] MEDS ORDERED: COZ50 PO (17:23)
[2017-04-21] MEDS ORDERED: PROAIR HFA INH (17:24)
[2017-04-21] MEDS ORDERED: TESS PO (17:25)
[2017-04-21] MEDS ORDERED: LAN125 PO (17:26)
[2017-04-21] MEDS ORDERED: CLARIT10 PO (17:27)
[2017-04-21] MEDS ORDERED: JANUVIA25 MG PO (17:27)
[2017-04-21] MEDS ORDERED: DALIRESP500 MCG PO (17:29)
[2017-04-21] MEDS ORDERED: ATV.5 PO (17:29)
[2017-04-21] MEDS ORDERED: LYRICA50 PO (17:30)
[2017-04-21] MEDS ORDERED: ZOFRAN ODT4 MG PO (17:31)
[2017-04-21] MEDS ORDERED: BREO ELLIPTA INH (17:32)
[2017-04-21] MEDS ORDERED: SPIRIVA INH (17:33)
[2017-04-21] MEDS ORDERED: VITAMIN D1000 UNI1 PO (17:34)
[2017-04-21] MEDS ORDERED: MUCINEX D PO (17:36)
[2017-04-21] MEDS ORDERED: KLOR-CON M2020 MEQ PO (17:37)
[2017-04-21] MEDS ORDERED: SINGULAIR1 PO (17:38)
[2017-04-21] MEDS ORDERED: SIN10 PO (17:38)
[2017-04-21] MEDS ORDERED: MIRAPEX250 PO (17:39)
[2017-04-21] MEDS ORDERED: PRAVACHOL40 MG PO (17:39)
[2017-04-21] MEDS ORDERED: PROTONIX20 MG PO (17:40)
[2017-04-21] MEDS ORDERED: Z300 PO (17:40)
[2017-04-21 21:05] LABS: PHOSPHORUS, SERUM 6.4 MG/DL (2.5-4.5)
[2017-04-21 21:46] LABS: PROCALCITONIN 1.07 ng/mL (<0.5)
[2017-04-22 01:52] LABS: ASCORBIC ACID (UR NOT ORDER) NEG (NEG); BILIRUBIN, URINE NEGATIVE (NEG); KETONE, URINE NEGATIVE (NEG); LEUKOCYTE ESTERASE(NOT OR NEG (NEG); WBC (NOT ORDERED) (RFLEX) 3 (0-5)
[2017-04-22 03:13] LABS: HEMATOCRIT 25.8 % (36.0-48.0); HEMOGLOBIN 8.2 g/dL (12.0-16.0); MEAN CORPUS HGB CONC 31.8 g/dL (32.0-36.0); MEAN CORPUSCULAR HEMOGLOB 29.4 pg (26.0-34.0); MEAN CORPUSCULAR VOLUME 92.5 fL (80-100); MEAN PLATELET VOLUME 10.7 fL (9.2-13.0); PLATELET COUNT 137 10/3/uL (150-400); RBC DISTRIBUTION WIDTH 16.7 % (12.0-16.0); RED CELL COUNT 2.79 10/6/uL (4.0-5.6); WHITE BLOOD CELLS 9.8 10/3/uL (4.5-10.5)
[2017-04-22 03:14] LABS: MANUAL DIFF YES %
[2017-04-22 03:29] LABS: BUN (BLOOD UREA NITROGEN) 81 MG/DL (6-23); CALCIUM, SERUM 8.5 MG/DL (8.5-10.4); CHLORIDE, SERUM 108 MMOL/L (96-112); CO2 (CARBON DIOXIDE) 22 MMOL/L (24-34); CREATININE 2.97 MG/DL (0.55-1.02); GFR AFRICAN AMERICAN 17 ML/MIN (>=60); GFR NON AFRICAN AMERICAN 14 ML/MIN (>=60); SODIUM, SERUM 138 MMOL/L (135-148)
[2017-04-22 03:32] LABS: GLUCOSE, SERUM 51 MG/DL (60-99); POTASSIUM, SERUM 5.9 MMOL/L (3.5-5.3)
[2017-04-22 03:35] LABS: LYMPHOCYTES 14 %; LYMPHOCYTES ABSOLUTE (CALC) 1.37 10/3/uL (0.67-4.30); MONOCYTES 4 %; MONOCYTES ABSOLUTE (CALC) 0.39 10/3/uL (0.21-1.20); NEUTROPHILS ABSOLUTE (CALC) 8.04 10/3/uL (2.02-8.40); PLATELET ESTIMATE SLT DEC (ADEQUATE); RBC MORPHOLOGY NORM (NORMAL); SEGMENTED NEUTROPHIL (0) 82 %; TOTAL NUCLEATED CELLS 100
[2017-04-22 03:40] LABS: A/G RATIO 1.2 (0.7-1.9); ALBUMIN 3.5 G/DL (3.5-5.0); ALKALINE PHOSPHATASE 107 U/L (45-117); BUN (BLOOD UREA NITROGEN) 79 MG/DL (6-23); CALCIUM, SERUM 8.3 MG/DL (8.5-10.4); CHLORIDE, SERUM 109 MMOL/L (96-112); CO2 (CARBON DIOXIDE) 22 MMOL/L (24-34); CREATININE 2.94 MG/DL (0.55-1.02); GFR AFRICAN AMERICAN 17 ML/MIN (>=60); GFR NON AFRICAN AMERICAN 14 ML/MIN (>=60); GLUCOSE, SERUM 51 MG/DL (60-99); PHOSPHORUS, SERUM 6.2 MG/DL (2.5-4.5); POTASSIUM, SERUM 5.9 MMOL/L (3.5-5.3); SGOT(AST) 46 U/L (5-40); SGPT(ALT) 16 U/L (5-65); SODIUM, SERUM 139 MMOL/L (135-148); TOTAL BILIRUBIN 0.6 MG/DL (0-1.2); TOTAL PROTEIN 6.5 G/DL (6.0-8.5)
[2017-04-22 04:18] LABS: PROCALCITONIN 1.15 ng/mL (<0.5)
[2017-04-22 20:57] LABS: CREATININE, URINE 49.7 MG/DL
[2017-04-23 07:11] LABS: BASOPHILS 0.1 %; BASOPHILS ABSOLUTE 0.01 10/3/uL (0.0-0.16); EOSINOPHILS 4.3 %; EOSINOPHILS ABSOLUTE 0.39 10/3/uL (0.0-0.53); HEMATOCRIT 25.5 % (36.0-48.0); HEMOGLOBIN 7.9 g/dL (12.0-16.0); IMMATURE GRANULOCYTES 0.4 %; IMMATURE GRANULOCYTES ABSOLUTE 0.04 10/3/uL (0.0-0.11); LYMPHOCYTES 13.6 %; LYMPHOCYTES ABSOLUTE 1.23 10/3/uL (0.67-4.30); MEAN CORPUSCULAR HEMOGLOB 28.9 pg (26.0-34.0); MEAN CORPUSCULAR VOLUME 93.4 fL (80-100); MEAN PLATELET VOLUME 10.5 fL (9.2-13.0); MONOCYTES 9.4 %; MONOCYTES ABSOLUTE 0.85 10/3/uL (0.21-1.20); NEUTROPHILS 72.2 %; NEUTROPHILS ABSOLUTE 6.55 10/3/uL (2.02-8.40); PLATELET COUNT 159 10/3/uL (150-400); RBC DISTRIBUTION WIDTH 16.7 % (12.0-16.0); RED CELL COUNT 2.73 10/6/uL (4.0-5.6); WHITE BLOOD CELLS 9.1 10/3/uL (4.5-10.5)
[2017-04-23 07:12] LABS: MANUAL DIFF NO %
[2017-04-23 07:26] LABS: BUN (BLOOD UREA NITROGEN) 76 MG/DL (6-23); CALCIUM, SERUM 8.3 MG/DL (8.5-10.4); CHLORIDE, SERUM 111 MMOL/L (96-112); CO2 (CARBON DIOXIDE) 23 MMOL/L (24-34); POTASSIUM, SERUM 4.7 MMOL/L (3.5-5.3); SODIUM, SERUM 142 MMOL/L (135-148)
[2017-04-23 07:27] LABS: CREATININE 2.19 MG/DL (0.55-1.02); GFR AFRICAN AMERICAN 24 ML/MIN (>=60); GFR NON AFRICAN AMERICAN 21 ML/MIN (>=60); GLUCOSE, SERUM 129 MG/DL (60-99); PHOSPHORUS, SERUM 5.1 MG/DL (2.5-4.5)
[2017-04-24 07:37] LABS: BASOPHILS 0.1 %; BASOPHILS ABSOLUTE 0.01 10/3/uL (0.0-0.16); EOSINOPHILS 2.9 %; HEMATOCRIT 26.6 % (36.0-48.0); HEMOGLOBIN 8.3 g/dL (12.0-16.0); IMMATURE GRANULOCYTES 0.4 %; IMMATURE GRANULOCYTES ABSOLUTE 0.04 10/3/uL (0.0-0.11); LYMPHOCYTES 10.3 %; LYMPHOCYTES ABSOLUTE 1.05 10/3/uL (0.67-4.30); MEAN CORPUS HGB CONC 31.2 g/dL (32.0-36.0); MEAN CORPUSCULAR HEMOGLOB 29.3 pg (26.0-34.0); MEAN PLATELET VOLUME 11.3 fL (9.2-13.0); MONOCYTES 9.5 %; MONOCYTES ABSOLUTE 0.97 10/3/uL (0.21-1.20); NEUTROPHILS 76.8 %; NEUTROPHILS ABSOLUTE 7.84 10/3/uL (2.02-8.40); PLATELET COUNT 172 10/3/uL (150-400); RBC DISTRIBUTION WIDTH 16.5 % (12.0-16.0); RED CELL COUNT 2.83 10/6/uL (4.0-5.6); WHITE BLOOD CELLS 10.2 10/3/uL (4.5-10.5)
[2017-04-24 07:38] LABS: MANUAL DIFF NO %
[2017-04-24 07:54] LABS: BUN (BLOOD UREA NITROGEN) 69 MG/DL (6-23); CALCIUM, SERUM 8.5 MG/DL (8.5-10.4); CHLORIDE, SERUM 111 MMOL/L (96-112); CO2 (CARBON DIOXIDE) 23 MMOL/L (24-34); CREATININE 2.07 MG/DL (0.55-1.02); GFR AFRICAN AMERICAN 26 ML/MIN (>=60); GFR NON AFRICAN AMERICAN 22 ML/MIN (>=60); GLUCOSE, SERUM 178 MG/DL (60-99); PHOSPHORUS, SERUM 4.1 MG/DL (2.5-4.5); POTASSIUM, SERUM 5.2 MMOL/L (3.5-5.3); SODIUM, SERUM 140 MMOL/L (135-148)
[2017-04-25 05:18] LABS: BASOPHILS 0.1 %; BASOPHILS ABSOLUTE 0.01 10/3/uL (0.0-0.16); EOSINOPHILS 4.5 %; EOSINOPHILS ABSOLUTE 0.32 10/3/uL (0.0-0.53); HEMATOCRIT 24.9 % (36.0-48.0); HEMOGLOBIN 7.7 g/dL (12.0-16.0); IMMATURE GRANULOCYTES 0.4 %; IMMATURE GRANULOCYTES ABSOLUTE 0.03 10/3/uL (0.0-0.11); LYMPHOCYTES 13.9 %; LYMPHOCYTES ABSOLUTE 0.98 10/3/uL (0.67-4.30); MEAN CORPUS HGB CONC 30.9 g/dL (32.0-36.0); MEAN CORPUSCULAR HEMOGLOB 29.3 pg (26.0-34.0); MEAN CORPUSCULAR VOLUME 94.7 fL (80-100); MONOCYTES 9.4 %; MONOCYTES ABSOLUTE 0.66 10/3/uL (0.21-1.20); NEUTROPHILS 71.7 %; NEUTROPHILS ABSOLUTE 5.04 10/3/uL (2.02-8.40); PLATELET COUNT 151 10/3/uL (150-400); RBC DISTRIBUTION WIDTH 16.6 % (12.0-16.0); RED CELL COUNT 2.63 10/6/uL (4.0-5.6)
[2017-04-25 05:21] LABS: MANUAL DIFF NO %
[2017-04-25 05:27] LABS: ALBUMIN 2.8 G/DL (3.5-5.0); CALCIUM, SERUM 8.3 MG/DL (8.5-10.4); CHLORIDE, SERUM 113 MMOL/L (96-112); CO2 (CARBON DIOXIDE) 22 MMOL/L (24-34); GFR AFRICAN AMERICAN 25 ML/MIN (>=60); GFR NON AFRICAN AMERICAN 22 ML/MIN (>=60); GLUCOSE, SERUM 153 MG/DL (60-99); PHOSPHORUS, SERUM 4.1 MG/DL (2.5-4.5); SODIUM, SERUM 141 MMOL/L (135-148)
[2017-04-25 05:28] LABS: BUN (BLOOD UREA NITROGEN) 74 MG/DL (6-23)
[2017-04-26 04:43] LABS: BE (BASE EXCESS) -7.4 MEQ/L (0 +/- 2.5); CARBOXYHEMOGLOBIN 1.2 % (0-3); DEVICE NC; HCO3 (ACTUAL BICARBONATE) 17.6 MEQ/L (23-27); HEMOBLOGIN CONTENT 7.7 G/DL (12-16); INSTRUMENT SERIAL # 8083; METHEMOGLOBIN 0.5 % (0-3); O2 CONTENT 10.8 VOL% (18-24); OPERATOR ID 33214; PCO2 (CO2 TENSION) 33 MMHG (35-45); PO2 (O2 TENSION) 142 MMHG (79-93); SAMPLE Arterial; pH 7.34 (7.37-7.43)
[2017-04-26 04:44] LABS: ALLENS TEST Pos
[2017-04-26 05:05] LABS: BASOPHILS 0.1 %; BASOPHILS ABSOLUTE 0.01 10/3/uL (0.0-0.16); EOSINOPHILS 4.3 %; EOSINOPHILS ABSOLUTE 0.32 10/3/uL (0.0-0.53); HEMOGLOBIN 7.8 g/dL (12.0-16.0); IMMATURE GRANULOCYTES 0.3 %; IMMATURE GRANULOCYTES ABSOLUTE 0.02 10/3/uL (0.0-0.11); LYMPHOCYTES ABSOLUTE 1.11 10/3/uL (0.67-4.30); MEAN CORPUS HGB CONC 31.2 g/dL (32.0-36.0); MEAN CORPUSCULAR HEMOGLOB 29.3 pg (26.0-34.0); MEAN PLATELET VOLUME 11.6 fL (9.2-13.0); MONOCYTES 6.5 %; MONOCYTES ABSOLUTE 0.48 10/3/uL (0.21-1.20); NEUTROPHILS 73.8 %; NEUTROPHILS ABSOLUTE 5.45 10/3/uL (2.02-8.40); PLATELET COUNT 164 10/3/uL (150-400); RBC DISTRIBUTION WIDTH 16.6 % (12.0-16.0); RED CELL COUNT 2.66 10/6/uL (4.0-5.6); WHITE BLOOD CELLS 7.4 10/3/uL (4.5-10.5)
[2017-04-26 05:09] LABS: MANUAL DIFF NO %
[2017-04-26 05:22] LABS: BUN (BLOOD UREA NITROGEN) 77 MG/DL (6-23); CALCIUM, SERUM 8.5 MG/DL (8.5-10.4); CHLORIDE, SERUM 111 MMOL/L (96-112); CO2 (CARBON DIOXIDE) 24 MMOL/L (24-34); CREATININE 2.07 MG/DL (0.55-1.02); GFR AFRICAN AMERICAN 26 ML/MIN (>=60); GFR NON AFRICAN AMERICAN 22 ML/MIN (>=60); GLUCOSE, SERUM 134 MG/DL (60-99); POTASSIUM, SERUM 4.3 MMOL/L (3.5-5.3); SODIUM, SERUM 141 MMOL/L (135-148)
[2017-04-27 06:02] LABS: CREAT 12HR UR 0.08 G/T VOL (0.30-0.90); CREATININE, UR 12.1 MG/DL
[2017-04-27 06:05] LABS: URINE VOL 12 HR (NOT ORD) 650 ML
[2017-04-27 06:12] LABS: T.P. URINE (NOT ORDER RAN 39.7 MG/DL
[2017-04-27 06:31] LABS: HEMATOCRIT 25.4 % (36.0-48.0); MANUAL DIFF YES %; MEAN CORPUS HGB CONC 31.5 g/dL (32.0-36.0); MEAN CORPUSCULAR HEMOGLOB 29.2 pg (26.0-34.0); MEAN CORPUSCULAR VOLUME 92.7 fL (80-100); MEAN PLATELET VOLUME 10.3 fL (9.2-13.0); PLATELET COUNT 164 10/3/uL (150-400); RBC DISTRIBUTION WIDTH 16.8 % (12.0-16.0); RED CELL COUNT 2.74 10/6/uL (4.0-5.6); WHITE BLOOD CELLS 16.3 10/3/uL (4.5-10.5)
[2017-04-27 06:40] LABS: ALBUMIN 2.8 G/DL (3.5-5.0); BUN (BLOOD UREA NITROGEN) 78 MG/DL (6-23); CALCIUM, SERUM 8.8 MG/DL (8.5-10.4); CHLORIDE, SERUM 109 MMOL/L (96-112); CO2 (CARBON DIOXIDE) 24 MMOL/L (24-34); CREATININE 2.37 MG/DL (0.55-1.02); GFR AFRICAN AMERICAN 22 ML/MIN (>=60); GFR NON AFRICAN AMERICAN 19 ML/MIN (>=60); PHOSPHORUS, SERUM 3.9 MG/DL (2.5-4.5); POTASSIUM, SERUM 3.7 MMOL/L (3.5-5.3); SODIUM, SERUM 143 MMOL/L (135-148)
[2017-04-27 06:42] LABS: GLUCOSE, SERUM 162 MG/DL (60-99)
[2017-04-27 06:43] LABS: T.V. 12HR URINE (NOT ORD) 650 ML (300-800)
[2017-04-27 06:44] LABS: T.P. 12HR UR (NOT ORDER) 258 MG/12HR (20-75)
[2017-04-27 07:06] LABS: BAND NEUTROPHILS 4 %; EOSINOPHILS 1 %; EOSINOPHILS ABSOLUTE (CALC) 0.16 10/3/uL (0.0-0.53); LYMPHOCYTES 8 %; MONOCYTES 5 %; MONOCYTES ABSOLUTE (CALC) 0.82 10/3/uL (0.21-1.20); NEUTROPHILS ABSOLUTE (CALC) 14.02 10/3/uL (2.02-8.40); PLATELET ESTIMATE ADQ (ADEQUATE); RBC MORPHOLOGY NORM (NORMAL); SEGMENTED NEUTROPHIL (0) 82 %; TOTAL NUCLEATED CELLS 100
[2017-04-28 06:07] LABS: BASOPHILS 0.1 %; BASOPHILS ABSOLUTE 0.01 10/3/uL (0.0-0.16); EOSINOPHILS 1.6 %; EOSINOPHILS ABSOLUTE 0.17 10/3/uL (0.0-0.53); HEMOGLOBIN 8.1 g/dL (12.0-16.0); IMMATURE GRANULOCYTES 0.5 %; IMMATURE GRANULOCYTES ABSOLUTE 0.05 10/3/uL (0.0-0.11); LYMPHOCYTES 8.7 %; LYMPHOCYTES ABSOLUTE 0.92 10/3/uL (0.67-4.30); MEAN CORPUS HGB CONC 31.2 g/dL (32.0-36.0); MEAN CORPUSCULAR HEMOGLOB 29.1 pg (26.0-34.0); MEAN CORPUSCULAR VOLUME 93.5 fL (80-100); MEAN PLATELET VOLUME 9.2 fL (9.2-13.0); MONOCYTES 9.3 %; MONOCYTES ABSOLUTE 0.98 10/3/uL (0.21-1.20); NEUTROPHILS 79.8 %; NEUTROPHILS ABSOLUTE 8.43 10/3/uL (2.02-8.40); PLATELET COUNT 130 10/3/uL (150-400); RED CELL COUNT 2.78 10/6/uL (4.0-5.6); WHITE BLOOD CELLS 10.6 10/3/uL (4.5-10.5)
[2017-04-28 06:10] LABS: MANUAL DIFF NO %
[2017-04-28 06:18] LABS: CALCIUM, SERUM 9.3 MG/DL (8.5-10.4); CHLORIDE, SERUM 107 MMOL/L (96-112); CO2 (CARBON DIOXIDE) 25 MMOL/L (24-34); GFR AFRICAN AMERICAN 16 ML/MIN (>=60); GFR NON AFRICAN AMERICAN 14 ML/MIN (>=60); GLUCOSE, SERUM 157 MG/DL (60-99); POTASSIUM, SERUM 3.9 MMOL/L (3.5-5.3); SODIUM, SERUM 143 MMOL/L (135-148)
[2017-04-28 06:19] LABS: BUN (BLOOD UREA NITROGEN) 82 MG/DL (6-23); CREATININE 2.98 MG/DL (0.55-1.02)
[2017-04-29 05:58] LABS: BASOPHILS 0 %; EOSINOPHILS 1.6 %; EOSINOPHILS ABSOLUTE 0.17 10/3/uL (0.0-0.53); HEMOGLOBIN 7.5 g/dL (12.0-16.0); IMMATURE GRANULOCYTES 0.6 %; IMMATURE GRANULOCYTES ABSOLUTE 0.06 10/3/uL (0.0-0.11); LYMPHOCYTES 12.8 %; LYMPHOCYTES ABSOLUTE 1.36 10/3/uL (0.67-4.30); MEAN CORPUS HGB CONC 31.3 g/dL (32.0-36.0); MEAN CORPUSCULAR HEMOGLOB 29.2 pg (26.0-34.0); MEAN CORPUSCULAR VOLUME 93.4 fL (80-100); MEAN PLATELET VOLUME 10.6 fL (9.2-13.0); MONOCYTES 7.4 %; MONOCYTES ABSOLUTE 0.79 10/3/uL (0.21-1.20); NEUTROPHILS 77.6 %; NEUTROPHILS ABSOLUTE 8.23 10/3/uL (2.02-8.40); PLATELET COUNT 138 10/3/uL (150-400); RBC DISTRIBUTION WIDTH 17.1 % (12.0-16.0); RED CELL COUNT 2.57 10/6/uL (4.0-5.6); WHITE BLOOD CELLS 10.6 10/3/uL (4.5-10.5)
[2017-04-29 06:00] LABS: MANUAL DIFF NO %
[2017-04-29 06:20] LABS: ALBUMIN 2.6 G/DL (3.5-5.0); CALCIUM, SERUM 8.8 MG/DL (8.5-10.4); CHLORIDE, SERUM 108 MMOL/L (96-112); CO2 (CARBON DIOXIDE) 24 MMOL/L (24-34); GFR AFRICAN AMERICAN 14 ML/MIN (>=60); GFR NON AFRICAN AMERICAN 12 ML/MIN (>=60); GLUCOSE, SERUM 158 MG/DL (60-99); PHOSPHORUS, SERUM 4.1 MG/DL (2.5-4.5); POTASSIUM, SERUM 3.4 MMOL/L (3.5-5.3); SODIUM, SERUM 144 MMOL/L (135-148)
[2017-04-29 06:21] LABS: BUN (BLOOD UREA NITROGEN) 91 MG/DL (6-23)
[2017-04-29 14:47] LABS: FOLATE 9.8 NG/ML (>5.2); TOTAL PROTEIN 6.5 G/DL (6.0-8.5)
[2017-04-30 06:34] LABS: ALBUMIN 2.7 G/DL (3.5-5.0); CALCIUM, SERUM 8.8 MG/DL (8.5-10.4); CHLORIDE, SERUM 105 MMOL/L (96-112); CO2 (CARBON DIOXIDE) 23 MMOL/L (24-34); CREATININE 3.74 MG/DL (0.55-1.02); GFR AFRICAN AMERICAN 13 ML/MIN (>=60); GFR NON AFRICAN AMERICAN 11 ML/MIN (>=60); GLUCOSE, SERUM 158 MG/DL (60-99); PHOSPHORUS, SERUM 3.6 MG/DL (2.5-4.5); POTASSIUM, SERUM 3.8 MMOL/L (3.5-5.3)
[2017-04-30 06:39] LABS: BUN (BLOOD UREA NITROGEN) 96 MG/DL (6-23); SODIUM, SERUM 137 MMOL/L (135-148)
[2017-04-30 06:48] LABS: BASOPHILS 0.2 %; BASOPHILS ABSOLUTE 0.02 10/3/uL (0.0-0.16); EOSINOPHILS 2.8 %; EOSINOPHILS ABSOLUTE 0.33 10/3/uL (0.0-0.53); HEMATOCRIT 30.6 % (36.0-48.0); IMMATURE GRANULOCYTES 0.7 %; IMMATURE GRANULOCYTES ABSOLUTE 0.08 10/3/uL (0.0-0.11); LYMPHOCYTES 8.4 %; LYMPHOCYTES ABSOLUTE 0.97 10/3/uL (0.67-4.30); MEAN CORPUS HGB CONC 32.7 g/dL (32.0-36.0); MEAN CORPUSCULAR HEMOGLOB 29.4 pg (26.0-34.0); MEAN PLATELET VOLUME 10.4 fL (9.2-13.0); MONOCYTES ABSOLUTE 1.04 10/3/uL (0.21-1.20); NEUTROPHILS 78.9 %; NEUTROPHILS ABSOLUTE 9.15 10/3/uL (2.02-8.40); PLATELET COUNT 139 10/3/uL (150-400); WHITE BLOOD CELLS 11.6 10/3/uL (4.5-10.5)
[2017-04-30 06:49] LABS: MANUAL DIFF NO %
[2017-04-30 19:33] LABS: PROCALCITONIN 0.99 ng/mL (<0.5)
[2017-05-01 06:21] LABS: BASOPHILS 0.1 %; BASOPHILS ABSOLUTE 0.01 10/3/uL (0.0-0.16); EOSINOPHILS 2.4 %; EOSINOPHILS ABSOLUTE 0.28 10/3/uL (0.0-0.53); HEMOGLOBIN 9.9 g/dL (12.0-16.0); IMMATURE GRANULOCYTES 1.1 %; IMMATURE GRANULOCYTES ABSOLUTE 0.13 10/3/uL (0.0-0.11); LYMPHOCYTES 9.4 %; LYMPHOCYTES ABSOLUTE 1.11 10/3/uL (0.67-4.30); MANUAL DIFF NO %; MEAN CORPUSCULAR HEMOGLOB 28.9 pg (26.0-34.0); MEAN CORPUSCULAR VOLUME 87.7 fL (80-100); MEAN PLATELET VOLUME 11.7 fL (9.2-13.0); MONOCYTES 10.2 %; NEUTROPHILS 76.8 %; NEUTROPHILS ABSOLUTE 9.04 10/3/uL (2.02-8.40); PLATELET COUNT 175 10/3/uL (150-400); RBC DISTRIBUTION WIDTH 17.1 % (12.0-16.0); RED CELL COUNT 3.42 10/6/uL (4.0-5.6); WHITE BLOOD CELLS 11.8 10/3/uL (4.5-10.5)
[2017-05-01 06:22] LABS: INTERNATIONAL NORMAL RATI 1.7 UNITS (-); PROTIME (NOT ORD) 19.5 SEC (12.0-14.5)
[2017-05-01 06:23] LABS: PARTIAL THROMBO TIME 31.6 SEC (22.5-37.2)
[2017-05-01 06:40] LABS: ALBUMIN 2.7 G/DL (3.5-5.0); BUN (BLOOD UREA NITROGEN) 98 MG/DL (6-23); CALCIUM, SERUM 8.8 MG/DL (8.5-10.4); CHLORIDE, SERUM 99 MMOL/L (96-112); CO2 (CARBON DIOXIDE) 24 MMOL/L (24-34); CREATININE 4.07 MG/DL (0.55-1.02); GFR AFRICAN AMERICAN 11 ML/MIN (>=60); GFR NON AFRICAN AMERICAN 10 ML/MIN (>=60); PHOSPHORUS, SERUM 3.9 MG/DL (2.5-4.5); POTASSIUM, SERUM 3.6 MMOL/L (3.5-5.3); SODIUM, SERUM 133 MMOL/L (135-148)
[2017-05-01 06:41] LABS: GLUCOSE, SERUM 227 MG/DL (60-99)
[2017-05-02 06:16] LABS: ALBUMIN 2.6 G/DL (3.5-5.0); CALCIUM, SERUM 8.7 MG/DL (8.5-10.4); CHLORIDE, SERUM 95 MMOL/L (96-112); CO2 (CARBON DIOXIDE) 25 MMOL/L (24-34); CREATININE 4.14 MG/DL (0.55-1.02); GFR AFRICAN AMERICAN 11 ML/MIN (>=60); GFR NON AFRICAN AMERICAN 10 ML/MIN (>=60); GLUCOSE, SERUM 250 MG/DL (60-99); POTASSIUM, SERUM 3.5 MMOL/L (3.5-5.3); SODIUM, SERUM 132 MMOL/L (135-148)
[2017-05-02 06:17] LABS: BUN (BLOOD UREA NITROGEN) 106 MG/DL (6-23)
[2017-05-02 06:18] LABS: BASOPHILS 0.3 %; BASOPHILS ABSOLUTE 0.03 10/3/uL (0.0-0.16); EOSINOPHILS 2.5 %; EOSINOPHILS ABSOLUTE 0.26 10/3/uL (0.0-0.53); HEMATOCRIT 30.4 % (36.0-48.0); LYMPHOCYTES 11.1 %; LYMPHOCYTES ABSOLUTE 1.17 10/3/uL (0.67-4.30); MEAN CORPUS HGB CONC 32.9 g/dL (32.0-36.0); MEAN CORPUSCULAR HEMOGLOB 28.7 pg (26.0-34.0); MEAN CORPUSCULAR VOLUME 87.4 fL (80-100); MEAN PLATELET VOLUME 12.2 fL (9.2-13.0); MONOCYTES 12.1 %; MONOCYTES ABSOLUTE 1.27 10/3/uL (0.21-1.20); NEUTROPHILS ABSOLUTE 7.69 10/3/uL (2.02-8.40); PLATELET COUNT 171 10/3/uL (150-400); RBC DISTRIBUTION WIDTH 16.7 % (12.0-16.0); RED CELL COUNT 3.48 10/6/uL (4.0-5.6); WHITE BLOOD CELLS 10.5 10/3/uL (4.5-10.5)
[2017-05-02 06:23] LABS: MANUAL DIFF NO %
[2017-05-03 07:25] LABS: BASOPHILS 0.1 %; BASOPHILS ABSOLUTE 0.01 10/3/uL (0.0-0.16); EOSINOPHILS 1.7 %; EOSINOPHILS ABSOLUTE 0.18 10/3/uL (0.0-0.53); HEMATOCRIT 31.4 % (36.0-48.0); HEMOGLOBIN 10.1 g/dL (12.0-16.0); IMMATURE GRANULOCYTES 0.7 %; IMMATURE GRANULOCYTES ABSOLUTE 0.07 10/3/uL (0.0-0.11); LYMPHOCYTES 10.1 %; LYMPHOCYTES ABSOLUTE 1.08 10/3/uL (0.67-4.30); MEAN CORPUS HGB CONC 32.2 g/dL (32.0-36.0); MEAN CORPUSCULAR HEMOGLOB 28.2 pg (26.0-34.0); MEAN CORPUSCULAR VOLUME 87.7 fL (80-100); MEAN PLATELET VOLUME 11.2 fL (9.2-13.0); MONOCYTES 8.1 %; MONOCYTES ABSOLUTE 0.87 10/3/uL (0.21-1.20); NEUTROPHILS 79.3 %; NEUTROPHILS ABSOLUTE 8.52 10/3/uL (2.02-8.40); PLATELET COUNT 161 10/3/uL (150-400); RBC DISTRIBUTION WIDTH 16.7 % (12.0-16.0); RED CELL COUNT 3.58 10/6/uL (4.0-5.6); WHITE BLOOD CELLS 10.7 10/3/uL (4.5-10.5)
[2017-05-03 07:27] LABS: MANUAL DIFF NO %
[2017-05-03 07:39] LABS: ALBUMIN 2.7 G/DL (3.5-5.0); CALCIUM, SERUM 8.5 MG/DL (8.5-10.4); CHLORIDE, SERUM 93 MMOL/L (96-112); CO2 (CARBON DIOXIDE) 27 MMOL/L (24-34); CREATININE 4.35 MG/DL (0.55-1.02); GFR AFRICAN AMERICAN 10 ML/MIN (>=60); GFR NON AFRICAN AMERICAN 9 ML/MIN (>=60); GLUCOSE, SERUM 216 MG/DL (60-99); PHOSPHORUS, SERUM 4.7 MG/DL (2.5-4.5); POTASSIUM, SERUM 3.5 MMOL/L (3.5-5.3); SODIUM, SERUM 131 MMOL/L (135-148)
[2017-05-03 07:41] LABS: BUN (BLOOD UREA NITROGEN) 109 MG/DL (6-23)
[2017-05-04 06:48] LABS: ALBUMIN 2.6 G/DL (3.5-5.0); CALCIUM, SERUM 8.6 MG/DL (8.5-10.4); CHLORIDE, SERUM 92 MMOL/L (96-112); CO2 (CARBON DIOXIDE) 27 MMOL/L (24-34); CREATININE 4.48 MG/DL (0.55-1.02); GFR AFRICAN AMERICAN 10 ML/MIN (>=60); GFR NON AFRICAN AMERICAN 9 ML/MIN (>=60); GLUCOSE, SERUM 236 MG/DL (60-99); PHOSPHORUS, SERUM 4.6 MG/DL (2.5-4.5); POTASSIUM, SERUM 3.9 MMOL/L (3.5-5.3); SODIUM, SERUM 128 MMOL/L (135-148)
[2017-05-04 06:49] LABS: BUN (BLOOD UREA NITROGEN) 107 MG/DL (6-23)
[2017-05-05 05:50] LABS: ALBUMIN 2.6 G/DL (3.5-5.0); CALCIUM, SERUM 8.2 MG/DL (8.5-10.4); CHLORIDE, SERUM 90 MMOL/L (96-112); CO2 (CARBON DIOXIDE) 27 MMOL/L (24-34); GFR AFRICAN AMERICAN 10 ML/MIN (>=60); GFR NON AFRICAN AMERICAN 9 ML/MIN (>=60); GLUCOSE, SERUM 252 MG/DL (60-99); PHOSPHORUS, SERUM 5.5 MG/DL (2.5-4.5); POTASSIUM, SERUM 4.2 MMOL/L (3.5-5.3); SODIUM, SERUM 127 MMOL/L (135-148)
[2017-05-05 05:51] LABS: BUN (BLOOD UREA NITROGEN) 115 MG/DL (6-23)
[2017-05-05 19:00] LABS: CREATININE, URINE 36.4 MG/DL
[2017-05-06 04:46] LABS: BASOPHILS 0.2 %; BASOPHILS ABSOLUTE 0.02 10/3/uL (0.0-0.16); EOSINOPHILS 2.8 %; HEMATOCRIT 29.2 % (36.0-48.0); HEMOGLOBIN 9.7 g/dL (12.0-16.0); IMMATURE GRANULOCYTES 0.9 %; LYMPHOCYTES 9.7 %; LYMPHOCYTES ABSOLUTE 1.05 10/3/uL (0.67-4.30); MANUAL DIFF NO %; MEAN CORPUS HGB CONC 33.2 g/dL (32.0-36.0); MEAN CORPUSCULAR HEMOGLOB 29.1 pg (26.0-34.0); MEAN CORPUSCULAR VOLUME 87.7 fL (80-100); MEAN PLATELET VOLUME 11.2 fL (9.2-13.0); MONOCYTES 7.5 %; MONOCYTES ABSOLUTE 0.81 10/3/uL (0.21-1.20); NEUTROPHILS 78.9 %; NEUTROPHILS ABSOLUTE 8.53 10/3/uL (2.02-8.40); PLATELET COUNT 155 10/3/uL (150-400); RBC DISTRIBUTION WIDTH 16.7 % (12.0-16.0); RED CELL COUNT 3.33 10/6/uL (4.0-5.6); WHITE BLOOD CELLS 10.8 10/3/uL (4.5-10.5)
[2017-05-06 05:05] LABS: ALBUMIN 2.6 G/DL (3.5-5.0); CHLORIDE, SERUM 93 MMOL/L (96-112); CO2 (CARBON DIOXIDE) 26 MMOL/L (24-34); GFR AFRICAN AMERICAN 10 ML/MIN (>=60); GFR NON AFRICAN AMERICAN 9 ML/MIN (>=60); PHOSPHORUS, SERUM 6.2 MG/DL (2.5-4.5); POTASSIUM, SERUM 4.1 MMOL/L (3.5-5.3); SODIUM, SERUM 131 MMOL/L (135-148)
[2017-05-06 05:06] LABS: BUN (BLOOD UREA NITROGEN) 114 MG/DL (6-23); GLUCOSE, SERUM 165 MG/DL (60-99)
[2017-05-06 19:49] LABS: CREATININE, URINE 38.1 MG/DL; T.P. URINE (NOT ORDER RAN 72.5 MG/DL
[2017-05-06 19:51] LABS: CREAT CLEAR (NOT ORDER) 6.6 ML/MIN (75-115); CREAT SERUM (NOT ORDER) 4.4 MG/DL (0.53-1.43); URINE CREAT 0.41 G/T VOL (0.6-2.8)
[2017-05-07 15:45] LABS: BASOPHILS 0.1 %; BASOPHILS ABSOLUTE 0.01 10/3/uL (0.0-0.16); EOSINOPHILS 1.7 %; EOSINOPHILS ABSOLUTE 0.15 10/3/uL (0.0-0.53); HEMATOCRIT 27.4 % (36.0-48.0); HEMOGLOBIN 8.9 g/dL (12.0-16.0); IMMATURE GRANULOCYTES 0.6 %; IMMATURE GRANULOCYTES ABSOLUTE 0.05 10/3/uL (0.0-0.11); LYMPHOCYTES 9.7 %; LYMPHOCYTES ABSOLUTE 0.88 10/3/uL (0.67-4.30); MEAN CORPUS HGB CONC 32.5 g/dL (32.0-36.0); MEAN CORPUSCULAR HEMOGLOB 28.5 pg (26.0-34.0); MEAN CORPUSCULAR VOLUME 87.8 fL (80-100); MEAN PLATELET VOLUME 11.9 fL (9.2-13.0); MONOCYTES 4.4 %; NEUTROPHILS 83.5 %; NEUTROPHILS ABSOLUTE 7.55 10/3/uL (2.02-8.40); PLATELET COUNT 170 10/3/uL (150-400); RBC DISTRIBUTION WIDTH 17.2 % (12.0-16.0); RED CELL COUNT 3.12 10/6/uL (4.0-5.6)
[2017-05-07 15:46] LABS: MANUAL DIFF NO %
[2017-05-07 15:57] LABS: ALBUMIN 2.7 G/DL (3.5-5.0); CALCIUM, SERUM 8.2 MG/DL (8.5-10.4); CHLORIDE, SERUM 98 MMOL/L (96-112); CO2 (CARBON DIOXIDE) 29 MMOL/L (24-34); GLUCOSE, SERUM 147 MG/DL (60-99); POTASSIUM, SERUM 3.3 MMOL/L (3.5-5.3); SODIUM, SERUM 129 MMOL/L (135-148)
[2017-05-07 15:58] LABS: BUN (BLOOD UREA NITROGEN) 98 MG/DL (6-23); CREATININE 3.28 MG/DL (0.55-1.02); GFR AFRICAN AMERICAN 15 ML/MIN (>=60); GFR NON AFRICAN AMERICAN 13 ML/MIN (>=60); PHOSPHORUS, SERUM 5.2 MG/DL (2.5-4.5)
[2017-05-08 05:59] LABS: BASOPHILS 0.1 %; BASOPHILS ABSOLUTE 0.01 10/3/uL (0.0-0.16); EOSINOPHILS 1.9 %; EOSINOPHILS ABSOLUTE 0.17 10/3/uL (0.0-0.53); HEMATOCRIT 29.1 % (36.0-48.0); HEMOGLOBIN 9.5 g/dL (12.0-16.0); IMMATURE GRANULOCYTES 0.4 %; IMMATURE GRANULOCYTES ABSOLUTE 0.04 10/3/uL (0.0-0.11); LYMPHOCYTES 9.2 %; LYMPHOCYTES ABSOLUTE 0.83 10/3/uL (0.67-4.30); MANUAL DIFF NO %; MEAN CORPUS HGB CONC 32.6 g/dL (32.0-36.0); MEAN CORPUSCULAR HEMOGLOB 29.6 pg (26.0-34.0); MEAN CORPUSCULAR VOLUME 90.7 fL (80-100); MEAN PLATELET VOLUME 11.7 fL (9.2-13.0); MONOCYTES 9.2 %; MONOCYTES ABSOLUTE 0.83 10/3/uL (0.21-1.20); NEUTROPHILS 79.2 %; NEUTROPHILS ABSOLUTE 7.14 10/3/uL (2.02-8.40); PLATELET COUNT 159 10/3/uL (150-400); RBC DISTRIBUTION WIDTH 17.3 % (12.0-16.0); RED CELL COUNT 3.21 10/6/uL (4.0-5.6)
[2017-05-08 06:08] LABS: ALBUMIN 2.7 G/DL (3.5-5.0); CALCIUM, SERUM 8.3 MG/DL (8.5-10.4); CHLORIDE, SERUM 100 MMOL/L (96-112); CO2 (CARBON DIOXIDE) 29 MMOL/L (24-34); CREATININE 2.87 MG/DL (0.55-1.02); GFR AFRICAN AMERICAN 17 ML/MIN (>=60); GFR NON AFRICAN AMERICAN 15 ML/MIN (>=60); PHOSPHORUS, SERUM 5.2 MG/DL (2.5-4.5); POTASSIUM, SERUM 3.9 MMOL/L (3.5-5.3); SODIUM, SERUM 132 MMOL/L (135-148)
[2017-05-08 06:14] LABS: BUN (BLOOD UREA NITROGEN) 78 MG/DL (6-23); GLUCOSE, SERUM 177 MG/DL (60-99)
[2017-05-08 10:24] LABS: HEPATITIS B SURFACE ANTIGEN NON-REACTIVE (NON-REACT)
[2017-05-08 10:51] LABS: HEPATITIS C ANTIBODY NON-REACTIVE (NON-REACT)
[2017-05-08 10:52] LABS: HEPATITIS B CORE AB IGM NON-REACTIVE (NON-REAC); HIV COMBO NON-REACTIVE (NON REAC)
[2017-05-08 10:53] LABS: HEP A ANTIBODY IGM NON-REACTIVE (NON-REACT)
[2017-05-09 07:00] LABS: BASOPHILS 0.1 %; BASOPHILS ABSOLUTE 0.01 10/3/uL (0.0-0.16); EOSINOPHILS 0 %; HEMATOCRIT 30.7 % (36.0-48.0); HEMOGLOBIN 9.5 g/dL (12.0-16.0); IMMATURE GRANULOCYTES 0.5 %; IMMATURE GRANULOCYTES ABSOLUTE 0.04 10/3/uL (0.0-0.11); LYMPHOCYTES 5.5 %; LYMPHOCYTES ABSOLUTE 0.45 10/3/uL (0.67-4.30); MEAN CORPUSCULAR HEMOGLOB 28.4 pg (26.0-34.0); MEAN CORPUSCULAR VOLUME 91.9 fL (80-100); MEAN PLATELET VOLUME 12.9 fL (9.2-13.0); MONOCYTES 4.1 %; MONOCYTES ABSOLUTE 0.34 10/3/uL (0.21-1.20); NEUTROPHILS 89.8 %; NEUTROPHILS ABSOLUTE 7.37 10/3/uL (2.02-8.40); PLATELET COUNT 181 10/3/uL (150-400); RBC DISTRIBUTION WIDTH 17.4 % (12.0-16.0); RED CELL COUNT 3.34 10/6/uL (4.0-5.6); WHITE BLOOD CELLS 8.2 10/3/uL (4.5-10.5)
[2017-05-09 07:01] LABS: MANUAL DIFF NO %; MEAN CORPUS HGB CONC 30.9 g/dL (32.0-36.0)
[2017-05-09 07:14] LABS: ALBUMIN 2.9 G/DL (3.5-5.0); BUN (BLOOD UREA NITROGEN) 52 MG/DL (6-23); CALCIUM, SERUM 8.5 MG/DL (8.5-10.4); CHLORIDE, SERUM 103 MMOL/L (96-112); CO2 (CARBON DIOXIDE) 27 MMOL/L (24-34); CREATININE 2.35 MG/DL (0.55-1.02); GFR AFRICAN AMERICAN 22 ML/MIN (>=60); GFR NON AFRICAN AMERICAN 19 ML/MIN (>=60); GLUCOSE, SERUM 230 MG/DL (60-99); PHOSPHORUS, SERUM 4.3 MG/DL (2.5-4.5); POTASSIUM, SERUM 5.4 MMOL/L (3.5-5.3); SODIUM, SERUM 138 MMOL/L (135-148)
[2017-05-10 03:53] LABS: BASOPHILS 0.1 %; BASOPHILS ABSOLUTE 0.01 10/3/uL (0.0-0.16); EOSINOPHILS 0.1 %; EOSINOPHILS ABSOLUTE 0.01 10/3/uL (0.0-0.53); HEMATOCRIT 30.1 % (36.0-48.0); HEMOGLOBIN 9.3 g/dL (12.0-16.0); IMMATURE GRANULOCYTES 0.5 %; IMMATURE GRANULOCYTES ABSOLUTE 0.06 10/3/uL (0.0-0.11); LYMPHOCYTES 7.3 %; LYMPHOCYTES ABSOLUTE 0.94 10/3/uL (0.67-4.30); MEAN CORPUS HGB CONC 30.9 g/dL (32.0-36.0); MEAN CORPUSCULAR HEMOGLOB 28.5 pg (26.0-34.0); MEAN CORPUSCULAR VOLUME 92.3 fL (80-100); MEAN PLATELET VOLUME 12.3 fL (9.2-13.0); MONOCYTES 8.2 %; MONOCYTES ABSOLUTE 1.05 10/3/uL (0.21-1.20); NEUTROPHILS 83.8 %; NEUTROPHILS ABSOLUTE 10.73 10/3/uL (2.02-8.40); PLATELET COUNT 171 10/3/uL (150-400); RBC DISTRIBUTION WIDTH 17.4 % (12.0-16.0); RED CELL COUNT 3.26 10/6/uL (4.0-5.6)
[2017-05-10 03:56] LABS: MANUAL DIFF NO %; WHITE BLOOD CELLS 12.8 10/3/uL (4.5-10.5)
[2017-05-10 04:06] LABS: CALCIUM, SERUM 8.5 MG/DL (8.5-10.4); CHLORIDE, SERUM 102 MMOL/L (96-112); CO2 (CARBON DIOXIDE) 29 MMOL/L (24-34); CREATININE 2.03 MG/DL (0.55-1.02); GFR AFRICAN AMERICAN 26 ML/MIN (>=60); GFR NON AFRICAN AMERICAN 23 ML/MIN (>=60); GLUCOSE, SERUM 202 MG/DL (60-99); PHOSPHORUS, SERUM 3.6 MG/DL (2.5-4.5); POTASSIUM, SERUM 4.5 MMOL/L (3.5-5.3); SODIUM, SERUM 138 MMOL/L (135-148)
[2017-05-10 04:08] LABS: BUN (BLOOD UREA NITROGEN) 43 MG/DL (6-23)
[2017-05-10] MEDS ORDERED: HALF81 PO (11:13)
[2017-05-10] MEDS ORDERED: MUCINEX600 MG PO (11:14)
[2017-05-10] MEDS ORDERED: IMDUR30 PO (11:15)
[2017-05-10] MEDS ORDERED: P20 PO (11:20)
[2017-05-10] MEDS ORDERED: ELIQUIS 2.5 MG2.5 MG PO (13:04)
== END 2017-05-10 17:27 | disposition home health service (06) | DRG 673 ==
LOC: ER 17:09 → 5NO 19:40 → 7NO 20:41
PROVIDERS: Emergency Medicine; Hospitalist; Internal Medicine; Internal Medicine Nephrology; Internal Medicine Pulmonary Disease; Nurse Practitioner; Registered Nurse; Surgery
PROC: 30233N1 Transfusion of Nonautologous Red Blood Cells into Peripheral Vein, Percutaneous Approach (ICD-10-PCS; 2017-04-29)
PROC: 05BD0ZZ Excision of Right Cephalic Vein, Open Approach (ICD-10-PCS; 2017-05-02)
PROC: 031709D Bypass Right Brachial Artery to Upper Arm Vein with Autologous Venous Tissue, Open Approach (ICD-10-PCS; principal; 2017-05-02 12:45)
PROC: 5A1D60Z (ICD-10-PCS; 2017-05-07)
PROC: 02H633Z Insertion of Infusion Device into Right Atrium, Percutaneous Approach (ICD-10-PCS; 2017-05-07)
PROC: B244ZZZ Ultrasonography of Right Heart (ICD-10-PCS; 2017-05-07)
DX: N17.9 Acute kidney failure, unspecified (principal); I50.43 Acute on chronic combined systolic (congestive) and diastolic (congestive) heart failure; J96.21 Acute and chronic respiratory failure with hypoxia; J18.9 Pneumonia, unspecified organism; G93.41 Metabolic encephalopathy; G20 Parkinson's disease; J44.0 Chronic obstructive pulmonary disease with (acute) lower respiratory infection; I27.2 Other secondary pulmonary hypertension; I48.0 Paroxysmal atrial fibrillation; D62 Acute posthemorrhagic anemia; N18.6 End stage renal disease; E87.5 Hyperkalemia; Z95.0 Presence of cardiac pacemaker; Z95.2 Presence of prosthetic heart valve; J44.9 Chronic obstructive pulmonary disease, unspecified; Z79.51 Long term (current) use of inhaled steroids; Z88.2 Allergy status to sulfonamides; G47.33 Obstructive sleep apnea (adult) (pediatric); I25.10 Atherosclerotic heart disease of native coronary artery without angina pectoris; D63.1 Anemia in chronic kidney disease; E03.9 Hypothyroidism, unspecified
CPT/HCPCS: 36415; 36558; 36600; 36821; 70450; 71010; 71020; 72040; 74176; 76775; 76937; 77001; 80048; 80053; 80069; 80074; 80202; 81001; 81050; 82272; 82570; 82575; 82607; 82728; 82746; 82805; 82962; 83540; 83605; 83690; 83735; 83880; 84100; 84132; 84145; 84155; 84156; 84300; 84443; 84540; 85025; 85610; 85730; 86850; 86900; 86901; 86920; 87040; 87389; 87449; 87493; 87493-59; 93005; 93306; 94640; 96374; 96375; 97110-GP; 97116-GP; 97162-GP; 97530-GP; 99285; A9270-GY; C1750; C1769; G0257; G0365; G8978-CJ-GP; G8979-CH-GP; J0610; J0690; J0692; J0885; J2795; J2920; J3010; J3370; J3475; P9016; P9047